=== PATIENT | female | born 1995 | race Caucasian/White ===

== ENCOUNTER → 2020-10-25 01:53 | Outpatient (CLI) | payer OTHER, MEDICAID, SELFPAY ==
[2020-10-25 19:11] LABS: SARS-CoV-2 RNA PCR Negative
== END ==
PROVIDERS: Visit Provider Obstetrics & Gynecology
DX: Z01.812 Encounter for preprocedural laboratory examination (principal); Z20.822 Contact with and (suspected) exposure to COVID-19
CPT/HCPCS: C9803; U0003; U0005

== ENCOUNTER 2020-10-28 01:40 | Day surgery (SDC) | payer OTHER, MEDICAID, SELFPAY ==
[2020-10-24 14:30] VITALS: BMI 53.1
--- NOTE | 2020-10-25 14:48 | PM.IMHP ---
H&P: HPI History of Present Illness Date/Time: 10/25/20 14:48 she c/o pain at perineum since delivery, as well as dyspareunia Chief Complaint: episiotomy site pain / dyspareunia Review of Systems Review of Systems: All systems reviewed & are unremarkable except as noted in HPI and below [facility] Past Medical History Medical History Acid reflux Anxiety Headache PCOS (polycystic ovarian syndrome) Family History Family History Father Diabetes mellitus Depression Mother Hypertension Depression Sibling Depression Asthma Grandparent History of cancer Depression Heart disease Social History Social History Smoking status: Never smoker Alcohol intake: current Substance use: never Spiritual care concerns: No Meds Home Medications and Allergies Home Medications Medication Instructions Recorded Confirmed Type etonogestrel 0.12 mg-ethinyl 1 vag ring VAGINAL ONCE #3 ea 07/19/20 10/24/20 Rx estradiol 0.015 mg/24 hr vaginal ring sertraline 100 mg tablet 100 mg PO DAILY 07/19/20 10/24/20 History Allergies Allergy/AdvReac Type Severity Reaction Status Date / Time No Known Allergies Allergy Unknown Verified 10/24/20 14:13 Exam Const: General: healthy appearing, no acute distress, alert and awake Resp: Auscultation: clear to auscultation bilaterally Cardio: Rate: regular rate Rhythm: regular rhythm GI: Inspection: non-distended GI Palp: Yes Soft to palpation and No Tenderness to palpation present (GI) : External Female Exam: normal appearance of the urethra and other (10 mm tender open area in perineum w/ 2-3 mm band above it) Speculum Exam - Vagina: normal appearance of the vagina Bimanual exam- vagina & uterus: normal bimanual exam, uterine size normal, uterine mobility normal, non-tender and soft Bimanual Exam- Adnexa, other: normal adnexae, no masses and No adnexal tenderness Extrem: General: no pedal edema and no calf tenderness Psych: Mental Status: mental status grossly normal Assessment and Plan Assessment and plan (1) Discomfort at episiotomy site: Code(s): G89.18 - Other acute postprocedural pain Status: Acute Assessment and Plan: She opted and signed consent for episiotomy revision after risks, benefits, complications, and alternatives discussed. She expressed understanding and agrees (2) Introital dyspareunia: Code(s): N94.11 - Superficial (introital) dyspareunia Status: Acute
--- NOTE | 2020-10-28 07:27 | WPDANESEPPF ---
Anes - Initial Pre Proc Eval Procedure: Operation Date: 10/28/20 12:00 Proposed Procedures p Revision Episiotomy Site - Neela Mathew MD Date/Time: 10/28/20 07:27 Surgeon: Neela Mathew MD Pre Op Diagnosis: superficial dyspareunia discomfort episiotomy sit Patient Data Age: 25 Gender: F Height: 1.6 m Weight: 136.2 kg Allergies Allergy/AdvReac Type Severity Reaction Status Date / Time No Known Allergies Allergy Unknown Verified 10/28/20 10:31 Home Medications Medication Instructions Recorded Confirmed Type etonogestrel 0.12 mg-ethinyl 1 vag ring VAGINAL ONCE #3 ea 07/19/20 10/28/20 Rx estradiol 0.015 mg/24 hr vaginal ring sertraline 100 mg tablet 100 mg PO DAILY 07/19/20 10/28/20 History Patient hx anesthesia problems: none Family hx anesthesia problems: none PMFSH Past Medical History Medical History Acid reflux Anxiety Headache PCOS (polycystic ovarian syndrome) Family History Family History Father Diabetes mellitus Depression Mother Hypertension Depression Sibling Depression Asthma Grandparent History of cancer Depression Heart disease Social History Social History Smoking status: Never smoker Alcohol intake: current Substance use: never Living arrangements: with family Spiritual care concerns: No Anes - Eval Final PreProcedure Day of Procedure 10/28/20 07:27 Patient weight: super morbidly obese Heart: regular rate and rhythm Lungs: clear to auscultation and normal air movement Airway: Mallampati scale class III Neurological: alert and oriented Last oral intake: >/= 8 hours ASA classification: III Emergent: no Anesthetic plan: proceed Anesthesia type and monitoring: general LMA and standard monitoring Informed Consent: The patient's anesthetic plan and its attendant risks and benefits were discussed with the patient/family/POA. Questions were solicited and answers provided to the satisfaction of the patient/family/POA.
[2020-10-28 10:19] VITALS: BP 151/93; PULSE 90; RESP 16; TEMP 36.1; O2SAT 99
[2020-10-28] MEDS: LACTATED RINGERS 1,000 ML 30 ML IV CONT (10:45)
--- NOTE | 2020-10-28 11:49 | WPDHPUPDATE1 ---
History and Physical Update Update Date/Time: 10/28/20 11:49 History and Physical has been reviewed, including an updated exam of the patient. There are NO changes in the patient's condition. Risks, benefits, and alternatives have been discussed and questions answered. Patient agrees to proceed with procedure.
--- NOTE | 2020-10-28 12:06 | W.PM.PROC2 ---
Procedure Note - Detailed Date of Procedure 10/28/20 Pre-op Diagnosis superficial dyspareunia, discomfort episiotomy site Post-op Diagnosis same Procedure Performed Revision of episiotomy site Surgeon Neela Mathew MD Anesthesia MAC Indications Poor healing and pain at episiotomy site Findings 3-4 mm hole in perineum surrounded by scar tissue, otherwise normal external genital anatomy Description of Procedure She was taken to the operating room where she was sedated and placed in the dorsal lithotomy position. The perineal area was inspected with a 3-4 mm hole noted in the perineal body surrounded by a scar tissue. The hymenal ring was grasped at 5:00 a.m. and 7:00 a.m. with Verena clamps. A v-shaped incision was made in the perineum using a scalpel, removing the poorly healed scarred area in the perineum. Any bleeding points were cauterized using the Bovie. Then the incision site was then closed using 2 0 Vicryl in a running fashion. 1% lidocaine was injected prior to the 1st incision as well as at the end of the procedure to help with pain control when she wakes up. She tolerated the procedure well. Sponge, lap, needle, and instrument counts were correct x2. She was taken to the recovery room in stable condition. Estimated Blood Loss 25 Drains No Packing No Pathology none sent Complications No immediate complications Condition stable Disposition PACU
[2020-10-28] MEDS: LIDO 1%/EPINEPHRINE 1:100,000 20 ML VIAL 50 ML INFILTRATE (12:21)
[2020-10-28 12:47] VITALS: BP 141/86; PULSE 87; RESP 14; TEMP 36.9; O2SAT 100
[2020-10-28 13:00] VITALS: BP 132/64; PULSE 83; RESP 13; O2SAT 100
[2020-10-28 13:15] VITALS: BP 123/67; PULSE 81; RESP 15; O2SAT 100
[2020-10-28 13:23] VITALS: BP 147/88; PULSE 88; RESP 20
[2020-10-28 14:00] VITALS: BP 142/84; PULSE 84; RESP 20
== END 2020-10-28 14:04 | disposition home or self-care (01) ==
PROVIDERS: Visit Provider Obstetrics & Gynecology
PROC: (CPT 59300; principal; 2020-10-28 12:00)
DX: N94.11 Superficial (introital) dyspareunia (principal); L90.5 Scar conditions and fibrosis of skin; K21.9 Gastro-esophageal reflux disease without esophagitis; F41.9 Anxiety disorder, unspecified; E28.2 Polycystic ovarian syndrome; E66.01 Morbid (severe) obesity due to excess calories; Z68.43 Body mass index [BMI] 50.0-59.9, adult
CPT/HCPCS: 13131; A9270; C9803; J2250; J2405; J2704; J3010; J7120; U0003; U0005

== ENCOUNTER 2023-09-24 10:17 | Outpatient (CLI) | payer OTHER, SELFPAY ==
--- NOTE | ~2023-09-24 | US_ITS ---
Pelvic ultrasound. Clinical History: Irregular menstruation Technique: Realtime transabdominal scanning of the pelvis was performed. Color flow Doppler and Doppl er spectral analysis were performed. Findings: The uterus is anteverted, and measures 7.0 x 3.0 x 4.5 cm. The endometrial stripe has a th ickness of 5 mm. No focal mass is identified. The right ovary measures 2.9 x 2.0 x 2.3 cm. No significant right ovarian or adnexal mass is seen. The left ovary measures 2.8 x 3.0 x 2.6 cm. No significant left ovarian or adnexal mass is seen. There is no evidence of free fluid in the cul de sac. Impression: No significant abnormality seen. Reviewed, dictated and finalized at [facility] [place]. Impression: No significant abnormality seen.
== END 2023-09-24 10:18 ==
LOC: MICIMG 10:20
PROVIDERS: PCP Nurse Practitioner; Visit Provider Nurse Practitioner
DX: N92.6 Irregular menstruation, unspecified (principal)
CPT/HCPCS: 76856